=== PATIENT | male | born 1965 | race Hispanic/Latino ===

== ENCOUNTER 2017-03-31 07:19 | Emergency (ER) | payer BC ==
[2017-03-31] MEDS ORDERED: NACL 0.9% 1000 ML 1,000 ML IV ONE (07:39)
[2017-03-31 08:07] LABS: Basophils % (Auto) 0.3 % (0.0-1.8); Eosinophils % (Auto) 0.2 % (0.0-4.3); Hematocrit 49.6 % (35.5-45.6); Hemoglobin 17.2 gm/dl (11.8-15.2); Mean Corpuscular HGB Conc 35 % (32-34); Mean Corpuscular Hemoglobin 34 pg (28-32); Mean Corpuscular Volume 98 fl (84-94); Platelet Count 177 K/mm3 (140-440); Red Blood Count 5.06 M/mm3 (3.65-5.03); White Blood Count 9.3 K/mm3 (4.5-11.0)
[2017-03-31 08:13] LABS: INR 0.98 (0.87-1.13)
[2017-03-31 08:14] LABS: Partial Thromboplastin Time 28.6 Sec. (24.2-36.6)
[2017-03-31 08:24] LABS: Alanine Aminotransferase 37 units/L (7-56); Albumin 4.7 g/dL (3.9-5); Albumin/Globulin Ratio 1.4 %; Alkaline Phosphatase 105 units/L (35-129); Anion Gap 27 mmol/L; BUN/Creatinine Ratio 17.77; Blood Urea Nitrogen 16 mg/dL (9-20); Calcium 9.5 mg/dL (8.4-10.2); Carbon Dioxide 22 mmol/L (22-30); Chloride 94.1 mmol/L (98-107); Glucose 122 mg/dL (75-100); Lipase 56 units/L (13-60); Potassium 3.7 mmol/L (3.6-5.0); Sodium 139 mmol/L (137-145); Total Protein 8.1 g/dL (6.3-8.2)
--- NOTE | 2017-03-31 08:29 | XRay Report ---
ROUTINE CHEST, TWO VIEWS: HISTORY: chest pain. The trachea, heart, mediastinal contour, lung dowling and bony thorax are unremarkable. IMPRESSION: Unremarkable chest x-ray.
[2017-03-31] MEDS ORDERED: ATIVAN PO ONE (09:22)
--- NOTE | 2017-03-31 10:12 | Emergency Department Report ---
ED Chest Pain HPI - General Chief Complaint: Chest Pain Stated Complaint: CHEST PAIN Time Seen by Provider: 03/31/17 09:05 Source: patient Mode of arrival: Ambulatory Limitations: No Limitations - History of Present Illness Initial Comments: 51-year-old male presents to the emergency department complaining of chest pain. Patient reports the onset of anterior chest pain approximately 2 AM this morning. Patient describes sharp pain that does not radiate. Pain has been intermittent since onset. Patient reports some nausea and vomiting, but denies shortness of breath, dizziness, or diaphoresis. Patient also reports seeing bright red blood in his stool this morning. Patient states that he normally drinks about a pint of liquor a day. He reports to me that his last drink was more than 24 hours ago, but he told the triage nurse that his last drink was about 3:30 this morning. There are no other complaints. MD Complaint: chest pain -: Sudden, During the night Time: 02:00 Onset: during rest Pain Location: substernal, left chest, right chest Pain Radiation: none Severity: mild Severity scale (0 -10): 3 Consistency: intermittent Improves With: nothing Worsens With: nothing re: nausea, vomting. denies: diaphoresis, dyspnea Other Symptoms: other (hematochezia) Treatments Prior to Arrival: none Aspirin use within the Past 7 Days: (0) No - Related Data Home Medications Medication Instructions Recorded Confirmed Last Taken Lisinopril [Zestril TAB] 10 mg PO QDAY 03/31/17 03/31/17 Unknown amLODIPine [Norvasc] 10 mg PO DAILY 03/31/17 03/31/17 Unknown Allergies Allergy/AdvReac Type Severity Reaction Status Date / Time No Known Allergies Allergy Unverified 03/31/17 07:29 SAM score - Sam Score Age > 65: (0) No Aspirin use within the Past 7 Days: (0) No 3 or more CAD Risk Factors: (0) No 2 or more Angina events in past 24 hrs: (0) No Known CAD with more than 50% Stenosis: (0) No Elevated Cardiac Markers: (0) No ST Deviation Greater than 0.5mm: (0) No SAM Score: 0 ED Review of Systems ROS: Stated complaint: CHEST PAIN Other details as noted in HPI Comment: All other systems reviewed and negative Cardiovascular: chest pain Gastrointestinal: nausea, vomiting, hematochezia ED Past Medical Hx - Past Medical History Previous Medical History?: Yes Hx Hypertension: Yes - Surgical History Past Surgical History?: Yes Additional Surgical History: steel in right arm and rt shoulder - Family History Family history: no significant - Social History Smoking Status: Current Every Day Smoker Substance Use Type: Alcohol - Medications Home Medications: Home Medications Medication Instructions Recorded Confirmed Last Taken Type Lisinopril [Zestril TAB] 10 mg PO QDAY 03/31/17 03/31/17 Unknown History amLODIPine [Norvasc] 10 mg PO DAILY 03/31/17 03/31/17 Unknown History ED Physical Exam - General Limitations: No Limitations General appearance: alert, in no apparent distress, appears intoxicated - Head Head exam: Present: atraumatic, normocephalic - Eye Eye exam: Present: normal appearance, PERRL, EOMI - ENT ENT exam: Present: normal exam, normal orophraynx, mucous membranes moist - Neck Neck exam: Present: normal inspection, full ROM. Absent: tenderness - Respiratory Respiratory exam: Present: normal lung sounds bilaterally. Absent: respiratory distress - Cardiovascular Cardiovascular Exam: Present: regular rate, normal rhythm, normal heart sounds - GI/Abdominal GI/Abdominal exam: Present: soft, normal bowel sounds. Absent: distended, tenderness - Extremities Exam Extremities exam: Present: normal inspection, full ROM. Absent: tenderness - Back Exam Back exam: Present: normal inspection, full ROM. Absent: tenderness - Neurological Exam Neurological exam: Present: alert, oriented X3. Absent: motor sensory deficit - Skin Skin exam: Present: warm, dry, intact ED Course Vital Signs 03/31/17 03/31/17 03/31/17 07:30 08:44 08:45 Temperature 98.3 F Pulse Rate 94 H 101 H Respiratory 26 H 15 Rate Blood Pressure 163/104 Blood Pressure [Left] O2 Sat by Pulse 100 96 95 Oximetry 03/31/17 08:53 Temperature Pulse Rate Respiratory Rate Blood Pressure Blood Pressure 166/99 [Left] O2 Sat by Pulse Oximetry ED Medical Decision Making - Lab Data Result diagrams: 03/31/17 07:46 03/31/17 07:46 - EKG Data -: EKG Interpreted by Ks EKG shows normal: sinus rhythm, axis, intervals, QRS complexes Rate: normal - EKG Data When compared to previous EKG there are: previous EKG unavailable Interpretation: nonspecific ST-T wave oral - Radiology Data Radiology results: report reviewed Chest x-ray shows no acute cardiopulmonary abnormalities. - Medical Decision Making Lab and imaging results reviewed. Patient is clinically sober at this time. He is had a nonischemic ECG and 2 negative troponins. Patient will be discharged home at this time. - Differential Diagnosis atypical chest pain, alcohol intoxication, anemia, GERD Critical care attestation.: If time is entered above; I have spent that time in minutes in the direct care of this critically ill patient, excluding procedure time. ED Disposition Clinical Impression: Non-cardiac chest pain Alcohol intoxication Qualifiers: Complication of substance-induced condition: uncomplicated Qualified Code(s): F10.920 - Alcohol use, unspecified with intoxication, uncomplicated Disposition: DISCHARGED TO HOME OR SELFCARE Is pt being admited?: No Condition: Stable Instructions: Chest Pain (ED) Referrals: PRIMARY CARE, [Primary Care Provider] - 3-5 Days Time of Disposition: 12:55
[2017-03-31 12:21] LABS: Urine Drugs of Abuse Note Disclamer
[2017-03-31 13:05] VITALS: BP 150/79
== END 2017-03-31 13:03 | disposition home or self-care (01) ==
LOC: ED 07:19
DX: R07.9 Chest pain, unspecified (principal); R11.2 Nausea with vomiting, unspecified; I10 Essential (primary) hypertension; F17.200 Nicotine dependence, unspecified, uncomplicated
CPT/HCPCS: 36415; 71020; 80053; 80307; 83690; 84484; 85025; 85610; 85730; 86850; 86900; 86901; 93005; 93010; 96360; 96361; 99285; G0480; J7030; 80320

== ENCOUNTER 2017-04-17 14:24 | Emergency (ER) | payer BC ==
[2017-04-17 15:27] LABS: Basophils % (Auto) 0.5 % (0.0-1.8); Eosinophils % (Auto) 1.4 % (0.0-4.3); Hematocrit 43.4 % (35.5-45.6); Hemoglobin 14.8 gm/dl (11.8-15.2); Mean Corpuscular HGB Conc 34 % (32-34); Mean Corpuscular Hemoglobin 33 pg (28-32); Mean Corpuscular Volume 97 fl (84-94); Platelet Count 390 K/mm3 (140-440); Red Blood Count 4.45 M/mm3 (3.65-5.03); White Blood Count 6.4 K/mm3 (4.5-11.0)
[2017-04-17 15:41] LABS: BUN/Creatinine Ratio 15.55; Blood Urea Nitrogen 14 mg/dL (9-20); Calcium 10.3 mg/dL (8.4-10.2); Carbon Dioxide 17 mmol/L (22-30); Chloride 93.4 mmol/L (98-107); Glucose 179 mg/dL (75-100); Sodium 129 mmol/L (137-145)
[2017-04-17 15:46] LABS: Anion Gap 22 mmol/L; Potassium 3.8 mmol/L (3.6-5.0)
[2017-04-17 22:02] LABS: Urine Drugs of Abuse Note Disclamer
[2017-04-17 22:20] LABS: Bacteria,Urine 1+ /HPF (Negative); Bilirubin,Urine NEG (Negative); Blood,Urine NEG (Negative); Ketones,Urine TR mg/dL (Negative); Leukocyte Esterase,Urine TR (Negative); Mucus,Urine 2+ /HPF; Nitrite,Urine NEG (Negative)
[2017-04-18] MEDS ORDERED: ATIVAN IV ONE (03:57)
[2017-04-18] MEDS ORDERED: NACL 0.9% 1000 ML 1,000 ML IV ONE ×2 (03:57→06:44)
[2017-04-18] MEDS ORDERED: ZOFRAN IV ONE (03:57)
[2017-04-18] MEDS ORDERED: VITAMIN B-1 100 MG, FOLVITE 1 MG, INFUVITE 10 ML in NACL 0.9% 1000 ML 1,000 ML IV ONE (03:57)
[2017-04-18] MEDS ORDERED: DILAUDID IV ONE ×2 (03:57→05:22)
[2017-04-18 05:09] LABS: Alanine Aminotransferase 27 units/L (7-56); Albumin 4.5 g/dL (3.9-5); Albumin/Globulin Ratio 1.9 %; Alkaline Phosphatase 72 units/L (35-129); Lipase 99 units/L (13-60); Total Protein 6.9 g/dL (6.3-8.2)
[2017-04-18 05:16] LABS: Bilirubin,Direct < 0.2 mg/dL (0-0.2); Bilirubin,Indirect 0.3 mg/dL
--- NOTE | 2017-04-18 06:20 | Emergency Department Report ---
ED Alcohol HPI - General Chief Complaint: Psych Stated [facility] Time Seen by Provider: 04/18/17 03:45 Source: patient Mode of arrival: Ambulatory Limitations: No Limitations - History of Present Illness Initial Comments: 52-year-old male with a past medical history hypertension and alcohol abuse presents to [facility] complaints are call detox. Last drink 2 days ago. Patient presents with right arm shaking. Positive SI reported with a plan to jump off a bridge. Patient denies any suicidal attempt in the past. Has been depressed because things have been going wrong in his life lately. Patient had been nausea and vomiting the last 2 days with some mild epigastric pain. Pain is worse to palpation. Patient also complains of headache. - Related Data Home Medications Medication Instructions Recorded Confirmed Last Taken Lisinopril [Zestril TAB] 10 mg PO QDAY 03/31/17 04/18/17 Unknown amLODIPine [Norvasc] 10 mg PO DAILY 03/31/17 04/18/17 Unknown Allergies Allergy/AdvReac Type Severity Reaction Status Date / Time No Known Allergies Allergy Unverified 03/31/17 07:29 ED Review of Systems ROS: Stated complaint: [facility] Other details as noted in HPI Comment: All other systems reviewed and negative Other: Constitutional: No fevers chills Eyes: No eye pain visual changes ENT: No ear pain or throat pain Neck: Denies pain Respiratory: Denies cough wheezing shortness of breath Cardiovascular: Denies chest pain, palpitations, syncope GI: As per HPI : Denies dysuria Musculoskeletal: Denies back pain Skin: Denies rash, lesions, erythema Neurologic: Denies numbness, weakness Psychiatric: Positive suicidal ideation ED Past Medical Hx - Past Medical History Hx Hypertension: Yes Hx Psychiatric Treatment: Yes (alcoholism) - Surgical History Additional Surgical History: steel in right arm and rt shoulder - Social History Smoking Status: Current Every Day Smoker Substance Use Type: Alcohol - Medications Home Medications: Home Medications Medication Instructions Recorded Confirmed Last Taken Type Lisinopril [Zestril TAB] 10 mg PO QDAY 03/31/17 04/18/17 Unknown History amLODIPine [Norvasc] 10 mg PO DAILY 03/31/17 04/18/17 Unknown History ED Physical Exam - General Limitations: No Limitations - Other Other exam information: General: No limitations, patient is alert in no acute distress Head exam: Atraumatic, normocephalic Eyes exam: Normal appearance ENT: Moist mucous membrane, normal oropharynx Neck exam: Normal inspection, full range of motion, no meningismus nontender Respiratory exam: Clear to auscultation bilateral, no wheezes, rales, crackles Cardiovascular: Normal rate and rhythm, normal heart sounds Abdomen: Soft, nondistended, mild epigastric tenderness, with normal bowel sounds, no rebound, or guarding Extremity: Full range of motion normal inspection no deformity Back: Normal Inspection, full range of motion, no tenderness Neurologic: Alert, oriented x3, cranial nerves intact, no motor or sensory deficit. Tremor noted to right hand Psychiatric: normal affect, normal mood Skin: Warm, dry, intact ED Course Vital Signs 04/17/17 04/17/17 04/18/17 15:06 20:28 01:23 Temperature 99.2 F 98.6 F Pulse Rate 107 H 101 H 72 Respiratory 18 20 18 Rate Blood Pressure 150/111 Blood Pressure 155/99 142/82 [Right] O2 Sat by Pulse 100 97 95 Oximetry 04/18/17 04/18/17 04/18/17 01:59 02:00 02:30 Temperature Pulse Rate 74 70 Respiratory 18 18 18 Rate Blood Pressure Blood Pressure 138/78 145/75 [Right] O2 Sat by Pulse 96 97 96 Oximetry 04/18/17 04/18/17 04/18/17 03:45 04:15 04:41 Temperature Pulse Rate 68 65 60 Respiratory 18 18 18 Rate Blood Pressure 120/63 Blood Pressure 124/72 124/69 [Right] O2 Sat by Pulse 96 95 94 Oximetry 04/18/17 04/18/17 05:00 05:43 Temperature Pulse Rate 63 Respiratory 17 18 Rate Blood Pressure 118/65 Blood Pressure [Right] O2 Sat by Pulse 95 Oximetry - Reevaluation(s) Reevaluation #1: 04/18/17 06:41 vitals and sx improved in ed with treatment ED Medical Decision Making - Lab Data Result diagrams: 04/17/17 15:15 04/17/17 15:15 Lab Results 04/17/17 04/17/17 04/17/17 Range/Units 15:15 15:15 15:15 WBC 6.4 (4.5-11.0) K/mm3 RBC 4.45 (3.65-5.03) M/mm3 Hgb 14.8 (11.8-15.2) gm/dl Hct 43.4 (35.5-45.6) % MCV 97 H (84-94) fl MCH 33 H (28-32) pg MCHC 34 (32-34) % RDW 13.0 L (13.2-15.2) % Plt Count 390 (140-440) K/mm3 Lymph % (Auto) 16.1 (13.4-35.0) % [place] % (Auto) 4.4 (0.0-7.3) % Eos % (Auto) 1.4 (0.0-4.3) % Baso % (Auto) 0.5 (0.0-1.8) % Lymph # 1.0 L (1.2-5.4) K/mm3 [place] # 0.3 (0.0-0.8) K/mm3 Eos # 0.1 (0.0-0.4) K/mm3 Baso # 0.0 (0.0-0.1) K/mm3 Seg Neutrophils % 77.6 H (40.0-70.0) % Seg Neutrophils # 4.9 (1.8-7.7) K/mm3 Sodium 129 L (137-145) mmol/L Potassium 3.8 (3.6-5.0) mmol/L Chloride 93.4 L (98-107) mmol/L Carbon Dioxide 17 L (22-30) mmol/L Anion Gap 22 mmol/L BUN 14 (9-20) mg/dL Creatinine 0.9 (0.8-1.5) mg/dL Estimated GFR > 60 ml/min BUN/Creatinine Ratio 15.55 % Glucose 179 H (75-100) mg/dL Calcium 10.3 H (8.4-10.2) mg/dL Magnesium (1.7-2.3) mg/dL Total Bilirubin (0.1-1.2) mg/dL Direct Bilirubin (0-0.2) mg/dL Indirect Bilirubin mg/dL AST (5-40) units/L ALT (7-56) units/L Alkaline Phosphatase (35-129) units/L Total Protein (6.3-8.2) g/dL Albumin (3.9-5) g/dL Albumin/Globulin Ratio % Lipase (13-60) units/L Urine Color (Yellow) Urine Turbidity (Clear) Urine pH (5.0-7.0) Ur Specific [place] (1.003-1.030) Urine Protein (Negative) mg/dL Urine Glucose (UA) (Negative) mg/dL Urine Ketones (Negative) mg/dL Urine Blood (Negative) Urine Nitrite (Negative) Urine Bilirubin (Negative) Urine Urobilinogen (<2.0) mg/dL Ur Leukocyte Esterase (Negative) Urine WBC (Auto) (0.0-6.0) /HPF Urine RBC (Auto) (0.0-6.0) /HPF U Epithel Cells (Auto) (0-13.0) /HPF Urine Bacteria (Auto) (Negative) /HPF Calcium Oxalate Crystal Hyaline Casts /LPF Urine Mucus /HPF Urine Opiates Screen Urine Methadone Screen Ur Barbiturates Screen Ur Phencyclidine Scrn Ur Amphetamines Screen U Benzodiazepines Scrn Urine Cocaine Screen U Marijuana (THC) Screen Drugs of Abuse Note Plasma/Serum Alcohol < 0.01 (0-0.07) gm% 04/17/17 04/17/17 04/18/17 Range/Units 21:48 21:48 04:19 WBC (4.5-11.0) K/mm3 RBC (3.65-5.03) M/mm3 Hgb (11.8-15.2) gm/dl Hct (35.5-45.6) % MCV (84-94) fl MCH (28-32) pg MCHC (32-34) % RDW (13.2-15.2) % Plt Count (140-440) K/mm3 Lymph % (Auto) (13.4-35.0) % [place] % (Auto) (0.0-7.3) % Eos % (Auto) (0.0-4.3) % Baso % (Auto) (0.0-1.8) % Lymph # (1.2-5.4) K/mm3 [place] # (0.0-0.8) K/mm3 Eos # (0.0-0.4) K/mm3 Baso # (0.0-0.1) K/mm3 Seg Neutrophils % (40.0-70.0) % Seg Neutrophils # (1.8-7.7) K/mm3 Sodium (137-145) mmol/L Potassium (3.6-5.0) mmol/L Chloride (98-107) mmol/L Carbon Dioxide (22-30) mmol/L Anion Gap mmol/L BUN (9-20) mg/dL Creatinine (0.8-1.5) mg/dL Estimated GFR ml/min BUN/Creatinine Ratio % Glucose (75-100) mg/dL Calcium (8.4-10.2) mg/dL Magnesium 1.70 (1.7-2.3) mg/dL Total Bilirubin 0.50 (0.1-1.2) mg/dL Direct Bilirubin < 0.2 (0-0.2) mg/dL Indirect Bilirubin 0.3 mg/dL AST 29 (5-40) units/L ALT 27 (7-56) units/L Alkaline Phosphatase 72 (35-129) units/L Total Protein 6.9 (6.3-8.2) g/dL Albumin 4.5 (3.9-5) g/dL Albumin/Globulin Ratio 1.9 % Lipase 99 H (13-60) units/L Urine Color [place] (Yellow) Urine Turbidity Clear (Clear) Urine pH 5.0 (5.0-7.0) Ur Specific [place] 1.026 (1.003-1.030) Urine Protein 30 mg/dl (Negative) mg/dL Urine Glucose (UA) Neg (Negative) mg/dL Urine Ketones Tr (Negative) mg/dL Urine Blood Neg (Negative) Urine Nitrite Neg (Negative) Urine Bilirubin Neg (Negative) Urine Urobilinogen 2.0 (<2.0) mg/dL Ur Leukocyte Esterase Tr (Negative) Urine WBC (Auto) 4.0 (0.0-6.0) /HPF Urine RBC (Auto) 3.0 (0.0-6.0) /HPF U Epithel Cells (Auto) < 1.0 (0-13.0) /HPF Urine Bacteria (Auto) 1+ (Negative) /HPF Calcium Oxalate Crystal 1+ Hyaline Casts 1 /LPF Urine Mucus 2+ /HPF Urine Opiates Screen Presumptive negative Urine Methadone Screen Presumptive negative Ur Barbiturates Screen Presumptive positive Ur Phencyclidine Scrn Presumptive negative Ur Amphetamines Screen Presumptive negative U Benzodiazepines Scrn Presumptive positive Urine Cocaine Screen Presumptive negative U Marijuana (THC) Screen Presumptive negative Drugs of Abuse Note Disclamer Plasma/Serum Alcohol (0-0.07) gm% - Medical Decision Making Vital signs since improved ED treatment. Mental health has been consult to evaluate patient for inpatient treatment secondary to suicidal ideation as well as alcohol detox - Differential Diagnosis alcohol withdrawal, suicidal ideation Critical Care Time: No Critical care attestation.: If time is entered above; I have spent that time in minutes in the direct care of this critically ill patient, excluding procedure time. ED Disposition Clinical Impression: Alcohol abuse, Alcohol withdrawal, Suicidal ideation, Medical clearance for psychiatric admission Disposition: [id number]/TX-65 PSY HOSP/PSY UNIT Is pt being admited?: No Does the pt Need Aspirin: No Condition: Stable Time of Disposition: 06:43
[2017-04-18] MEDS ORDERED: ATIVAN IV PRN ×2 (06:43)
[2017-04-18] MEDS: ATIVAN IV PRN ×2 (07:45→18:15)
[2017-04-18] MEDS ORDERED: NACL 0.9% 1000 ML 1,000 ML ONE (10:18)
--- NOTE | 2017-04-18 12:12 | Consultation ---
History of Present Illness - Reason for Consult Reason for consult: etoh abuse Medications and Allergies Allergies Allergy/AdvReac Type Severity Reaction Status Date / Time No Known Allergies Allergy Unverified 03/31/17 07:29 Home Medications Medication Instructions Recorded Confirmed Last Taken Type Lisinopril [Zestril TAB] 10 mg PO QDAY 03/31/17 04/18/17 Unknown History amLODIPine [Norvasc] 10 mg PO DAILY 03/31/17 04/18/17 Unknown History Active Meds: Active Medications Lorazepam (Ativan) 4 mg IV Q1HR PRN PRN Reason: CIWA-Ar 16-25 Lorazepam (Ativan) 2 mg IV Q1HR PRN PRN Reason: CIWA-Ar 8-15 Last Admin: 04/18/17 07:45 Dose: 2 mg Lorazepam (Ativan) 4 mg IV Q15MIN PRN PRN Reason: CIWA-Ar >25 Mental Status Exam - Vital signs Last Vital Signs Temp 98 F 04/18/17 07:20 Pulse 52 L 04/18/17 10:30 Resp 16 04/18/17 10:30 BP 112/61 04/18/17 10:30 Pulse Ox 100 04/18/17 10:30 Results Result Diagrams: 04/17/17 15:15 04/17/17 15:15 Abnormal lab results 04/17/17 04/17/17 04/18/17 Range/Units 15:15 15:15 04:19 MCV 97 H (84-94) fl MCH 33 H (28-32) pg RDW 13.0 L (13.2-15.2) % Lymph # 1.0 L (1.2-5.4) K/mm3 Seg Neutrophils % 77.6 H (40.0-70.0) % Sodium 129 L (137-145) mmol/L Chloride 93.4 L (98-107) mmol/L Carbon Dioxide 17 L (22-30) mmol/L Glucose 179 H (75-100) mg/dL Calcium 10.3 H (8.4-10.2) mg/dL Lipase 99 H (13-60) units/L All other labs normal. Assessment and Plan Assessment and plan: CHIEF COMPLAINT IN PATIENTS WORDS: HISTORY OF PRESENT ILLNESS REQUIRING ADMISSION TO INPATIENT LEVEL OF CARE: (Describe the onset of Illness, Intensity of Symptoms, and Circumstances Leading to Admission) This is a 52-year-old domiciled male who reports no formal past psychiatric history now presenting due to acute intoxication on EtOH with associated withdrawal syndrome and headache. On examination, patient was sedated and reported headache. Patient was minimally responsive to interviewer's questions. PSYCHIATRIC REVIEW OF SYSTEMS: Substance: UDS positive for barbiturates and benzos, with an undetectable BAL level Depression: unable to assess. Abby: unable to assess. Psychosis: unable to assess. Anxiety/ OCD/ PTSD: unable to assess. Suicidality: unable to assess. Other Self-Injurious Behavior: unable to assess. Violent/ Aggressive Behavior: unable to assess. CURRENT MEDICATIONS: ( Psychiatric and Non-psychiatric ) Patient unable to report ALLERGIES: NKDA PAST PSYCHIATRIC HISTORY: ( Prior Treatment, Precipitating Factors, Diagnosis, and Course of Treatment ) unable to assess. PAST PSYCHIATRIC MEDICATION TRIALS: unable to assess. MEDICAL HISTORY: (Chronic and Acute Illnesses, Current Medical Treatment, Recent Hospitalizations) unable to assess. Detoxification / Withdrawal: Patient had some signs and symptoms of withdrawal and was started on lorazepam detox taper MENTAL STATUS EXAM: General Appearance: Dressed in hospital gown, no acute distress Sensorium/Consciousness: sedated Eye Contact: none Attitude / Behavior: guarded, uncooperative Psychomotor & Musculoskeletal Activity: PMR Mood: reports headache Affect: flat Speech / Language: difficult to discern, slow and low volume Thought Processes: Mostly organized Thought Content: Unable to assess Perception: Denies perceptual disturbances Orientation: person, place, situation Judgment What would you do if you smelled smoke in a crowded movie theater?: poor/impulsive Insight: poor Intelligence Vocabulary, general fund of knowledge, educational level: Average Capacity of ADLs: Independent STRENGTHS: PSYCHOSOCIAL AND ENVIRONMENTAL STRESSORS: ADMITTING DIAGNOSES Psychiatric: Alcohol abuse Benzodiazepine abuse Evidence for the following: Medical: n/a INITIAL PLAN OF CARE AND TREATMENT GOALS: Reassess when patient is more alert Agree with current recommendation of using Ativan and this evil protocol to ensure patient doesn't incur worsening signs and symptoms of withdrawal
[2017-04-18] MEDS ORDERED: ULTRAM PO ONE (17:46)
--- NOTE | 2017-04-18 22:03 | Cat Scan Report ---
FINAL REPORT PROCEDURE: CT HEAD/BRAIN WO CON TECHNIQUE: Computerized tomography of the head was performed without contrast material. HISTORY: headache COMPARISON: No prior studies are available for comparison. FINDINGS: Skull and scalp: Normal. Paranasal sinuses: Normal. Ventricles and subarachnoid spaces: Normal. Cerebrum: No evidence of hemorrhage, acute infarction or mass . Cerebellum and brainstem: No evidence of hemorrhage, acute infarction or mass. Vasculature: Normal. Comments: None. IMPRESSION: Normal Examination
[2017-04-18] MEDS ORDERED: TORADOL ONE (22:33)
[2017-04-18] MEDS ORDERED: TORADOL IV ONE (22:39)
[2017-04-19 00:13] VITALS: BP 108/49
== END 2017-04-19 00:39 ==
LOC: ED 14:24
DX: R45.851 Suicidal ideations (principal); F10.239 Alcohol dependence with withdrawal, unspecified; F17.200 Nicotine dependence, unspecified, uncomplicated
CPT/HCPCS: 36415; 70450; 80048; 80074; 80307; 81001; 83690; 83735; 85025; 96361; 96365; 96366; 96375; 96376; 99285; G0480; J1170; J1885; J2060; J2405; J3411; J7030; 80320

== ENCOUNTER 2019-05-24 12:56 | Emergency (ER) | payer BC, OTHER ==
--- NOTE | 2019-05-24 13:08 | Event Note ---
ED Screening Note Date of service: 05/24/19 Time: 13:06 ED Screening Note: This is a 54 y.o. M. that presents to the ER with abdominal pain from [facility]. Current smoker and ETOH Denies V/D This initial assessment/diagnostic orders/clinical plan/treatment(s) is/are subject to change based on patients health status, clinical progression and re- assessment by fellow clinical providers in the ED. Further treatment and workup at subsequent clinical providers discretion. Patient/guardian urged not to elope from the ED as their condition may be serious if not clinically assessed and managed. Initial orders include: Labs
[2019-05-24 13:21] LABS: Basophils # (Auto) 0.1 K/mm3 (0.0-0.1); Basophils % (Auto) 1.1 % (0.0-1.8); Eosinophils % (Auto) 0.7 % (0.0-4.3); Hematocrit 48.7 % (35.5-45.6); Hemoglobin 17.2 gm/dl (11.8-15.2); Lymphocytes # (Auto) 2.2 K/mm3 (1.2-5.4); Lymphocytes % (Auto) 37.7 % (13.4-35.0); Mean Corpuscular HGB Conc 35 % (32-34); Mean Corpuscular Volume 103 fl (84-94); Monocytes # (Auto) 0.2 K/mm3 (0.0-0.8); Monocytes % (Auto) 4.2 % (0.0-7.3); Platelet Count 226 K/mm3 (140-440); Red Blood Count 4.73 M/mm3 (3.65-5.03); Red Cell Distribution Width 13.4 % (13.2-15.2)
[2019-05-24 13:37] LABS: Alanine Aminotransferase 23 units/L (7-56); Albumin 4.9 g/dL (3.9-5); BUN/Creatinine Ratio 13; Blood Urea Nitrogen 12 mg/dL (9-20); Calcium 9.8 mg/dL (8.4-10.2); Hemolysis Index 11
[2019-05-24] MEDS ORDERED: ALUM-MAG HYDROX-SIMETH 200-200-20MG/5ML PO ONE (14:36)
[2019-05-24] MEDS ORDERED: ZOFRAN ODT PO ONE (14:36)
[2019-05-24 14:48] LABS: Bilirubin,Urine NEG (Negative); Blood,Urine NEG (Negative); Color,Urine Amber (Yellow); Mucus,Urine 3+ /HPF
[2019-05-24 15:04] LABS: Amphetamine Screen,Urine PRESUMPTIVE NEGATIVE; Benzodiazepines Screen,Urine PRESUMPTIVE NEGATIVE; Cannabinoid Screen,Urine PRESUMPTIVE NEGATIVE; Cocaine Screen,Urine PRESUMPTIVE NEGATIVE; Methadone Screen,Urine PRESUMPTIVE NEGATIVE; Opiate Screen,Urine PRESUMPTIVE NEGATIVE
--- NOTE | 2019-05-24 15:15 | XRay Report ---
CHEST 1 VIEW INDICATION: CP. COMPARISON: None. FINDINGS: Support devices: None. Heart: Within normal limits. Lungs/Pleura: No acute air space or interstitial disease. Additional findings: None. IMPRESSION: No acute abnormality. Signer Name: Barney Powell MD Signed: 05/24/2019 3:11 PM Workstation Name: [id number]
[2019-05-24] MEDS ORDERED: NACL 0.9% 1000 ML 1,000 ML IV ONE (15:28)
[2019-05-24] MEDS ORDERED: DUONEB *Not for PRN Use IH ONE (15:29)
--- NOTE | 2019-05-24 16:46 | Cat Scan Report ---
CT abdomen pelvis w con INDICATION: ABD PAIN, N/V.. TECHNIQUE: All CT scans at this location are performed using the following dose modulation technique: Automated exposure control. CONTRAST: Omnipaque 300, 100 cc IV injection. COMPARISON: None available. CT abdomen: The parenchymal organs are unremarkable in appearance other than mild fatty infiltration of the liver. Negative for abdominal section or inflammation. The bowel is not dilated or thickened. CT PELVIS: Negative for distal ureteral stone, pelvic fluid collection or inflammation. A normal appe ndix is identified. IMPRESSION: 1. Mild fatty infiltration the liver. 2. Negative for obstruction or localized inflammation. Signer Name: Barney Powell MD Signed: 05/24/2019 4:42 PM Workstation Name: [id number]
--- NOTE | 2019-05-24 17:16 | Emergency Department Report ---
ED General Adult HPI - General Chief complaint: Chest Pain Stated complaint: CHEST PAIN/MEDICAL CLEARANCE Time Seen by Provider: 05/24/19 13:06 Source: patient Mode of arrival: Ambulatory Limitations: No Limitations - History of Present Illness Initial comments: This is a 54 y.o. M. that presents to the ER with abdominal pain from [facility], patient is to start alcohol detox today, was sent to ED for medical clearance secondary to him complaining of abdominal pain. Rates pain as 5 out of 10, burning in sensation, did consume alcohol today. Pain is worse with alcohol consumption. No fever, chills or night sweats. No vomiting. Does have nausea. no Alleviating factors. Severity scale (0 -10): 10 - Related Data Home Medications Medication Instructions Recorded Confirmed Last Taken Lisinopril [Zestril TAB] 10 mg PO QDAY 03/31/17 04/18/17 Unknown amLODIPine [Norvasc] 10 mg PO DAILY 03/31/17 04/18/17 Unknown Allergies Allergy/AdvReac Type Severity Reaction Status Date / Time No Known Allergies Allergy Unverified 03/31/17 07:29 ED Review of Systems ROS: Stated complaint: CHEST PAIN/MEDICAL CLEARANCE Other details as noted in HPI Comment: All other systems reviewed and negative ENT: denies: ear pain Respiratory: denies: cough Cardiovascular: denies: chest pain Endocrine: denies: flushing Gastrointestinal: abdominal pain, nausea. denies: vomiting ED Past Medical Hx - Past Medical History Hx Hypertension: Yes Hx Psychiatric Treatment: Yes (alcoholism) - Surgical History Additional Surgical History: steel in right arm and rt shoulder - Social History Smoking Status: Current Every Day Smoker Substance Use Type: Alcohol - Medications Home Medications: Home Medications Medication Instructions Recorded Confirmed Last Taken Type Lisinopril [Zestril TAB] 10 mg PO QDAY 03/31/17 04/18/17 Unknown History amLODIPine [Norvasc] 10 mg PO DAILY 03/31/17 04/18/17 Unknown History ED Physical Exam - General Limitations: No Limitations General appearance: alert, in no apparent distress - Head Head exam: Present: atraumatic, normocephalic - Eye Eye exam: Present: normal appearance, PERRL, EOMI Pupils: Present: normal accommodation - ENT ENT exam: Present: normal exam, normal orophraynx - Neck Neck exam: Present: normal inspection - Respiratory Respiratory exam: Present: normal lung sounds bilaterally - Cardiovascular Cardiovascular Exam: Present: regular rate, normal rhythm - GI/Abdominal GI/Abdominal exam: Present: soft, normal bowel sounds - Extremities Exam Extremities exam: Present: normal inspection - Back Exam Back exam: Present: normal inspection - Neurological Exam Neurological exam: Present: alert, oriented X3, CN II-XII intact ED Course Vital Signs 05/24/19 05/24/19 05/24/19 13:06 14:18 14:30 Temperature 98.4 F Pulse Rate 94 H 89 Pulse Rate [ Posterior Throughout] Respiratory 18 22 Rate Respiratory Rate [Posterior Throughout] Blood Pressure 145/103 166/97 Blood Pressure [Left] O2 Sat by Pulse 94 92 92 Oximetry 05/24/19 05/24/19 05/24/19 14:45 14:59 15:01 Temperature 98.2 F Pulse Rate 91 H 92 H Pulse Rate [ Posterior Throughout] Respiratory 14 22 22 Rate Respiratory Rate [Posterior Throughout] Blood Pressure 166/97 Blood Pressure 168/101 [Left] O2 Sat by Pulse 97 92 88 Oximetry 05/24/19 05/24/19 16:50 17:09 Temperature Pulse Rate Pulse Rate [ 88 90 Posterior Throughout] Respiratory Rate Respiratory 19 19 Rate [Posterior Throughout] Blood Pressure Blood Pressure [Left] O2 Sat by Pulse Oximetry ED Medical Decision Making - Lab Data Result diagrams: 05/24/19 13:10 05/24/19 13:10 Critical care attestation.: If time is entered above; I have spent that time in minutes in the direct care of this critically ill patient, excluding procedure time. ED Disposition Clinical Impression: Alcohol abuse Gastritis Qualifiers: Gastritis type: alcoholic Chronicity: acute Gastritis bleeding: without bleeding Qualified Code(s): K29.20 - Alcoholic gastritis without bleeding Disposition: -01 TO HOME OR SELFCARE Is pt being admited?: No Does the pt Need Aspirin: No Condition: Stable Instructions: Abuse of Alcohol (ED), Medical Clearance for Substance Abuse Treatment (ED) Referrals: KRISTA CHEN MD [Primary Care Provider] - 3-5 Days
[2019-05-24 17:22] VITALS: BP 139/79
[2019-05-24] MEDS ORDERED: ATIVAN PO ONE (17:54)
[2019-05-24] MEDS ORDERED: ATIVAN IV ONE (18:21)
[2019-05-24] MEDS ORDERED: ZOFRAN IV ONE (18:52)
== END 2019-05-24 19:20 | disposition home or self-care (01) ==
LOC: ED 12:56
DX: K29.20 Alcoholic gastritis without bleeding (principal); F10.120 Alcohol abuse with intoxication, uncomplicated; I10 Essential (primary) hypertension; F17.200 Nicotine dependence, unspecified, uncomplicated; Z79.899 Other long term (current) drug therapy
CPT/HCPCS: 36415; 71045; 74177; 80053; 80307; 81001; 82962; 83690; 84484; 85025; 93005; 93010; 94640; 96361; 96374; 96375; 99285; J2060; J2405; J7030; Q9967; 80320; 94644; G0480; Q0162

== ENCOUNTER 2021-01-17 09:07 | Emergency (ER) | payer SELFPAY ==
[2021-01-17] MEDS ORDERED: ONDANSETRON 4 MG/2 ML INJ IV ONE (09:12)
[2021-01-17] MEDS ORDERED: LORazepam 2 MG/ML VIAL IV ONE (09:12)
[2021-01-17] MEDS ORDERED: PANTOPRAZOLE 40 MG INJ IV ONE (09:19)
--- NOTE | 2021-01-17 09:22 | Emergency Department Report ---
ED Abdominal Pain HPI - General Stated Complaint: ABD PAINS Time Seen by Provider: 01/17/21 09:12 - History of Present Illness Initial Comments: This is a 55-year man who states that he has had trouble tolerating p.o. intake since last Monday. He describes epigastric discomfort. He denies any signs of hematemesis, hematochezia or melena. States he may have had some chills but denies fever. He is nauseated and has had dry heaving this a.m. the patient admits to me he is a regular consumer of alcohol but has not been able to drink since last Monday. He denies a prior history of pancreatitis. 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 He is noted to be generally a bit tremulous on exam. He denies prior experience with alcohol withdrawal. However his presentation is not inconsistent. MD Complaint: abdominal pain -: Gradual, days(s) Location: epigastric Radiation: none Migration to: no migration Quality: aching Consistency: intermittent Improves With: nothing Worsens With: eating Context: other (Alcohol consumption) Associated Symptoms: nausea, vomiting. denies: diarrhea, fever, constipation, dysuria, hematemesis, hematochezia - Related Data Home Medications Medication Instructions Recorded Confirmed Last Taken amLODIPine [Norvasc] 10 mg PO DAILY 03/31/17 04/18/17 Unknown lisinopriL [Zestril TAB] 10 mg PO QDAY 03/31/17 04/18/17 Unknown Previous Rx's Medication Instructions Recorded Last Taken Type Lansoprazole [Prevacid] 15 mg PO BID #30 cap 01/17/21 Unknown Rx Ondansetron [Zofran Odt] 4 mg PO Q8HR #7 tab.rapdis 01/17/21 Unknown Rx traMADoL [Ultram] 50 mg PO Q6HR PRN #7 tablet 01/17/21 Unknown Rx Allergies Allergy/AdvReac Type Severity Reaction Status Date / Time No Known Allergies Allergy Unverified 01/17/21 09:29 ED Review of Systems ROS: Stated complaint: ABD PAINS Other details as noted in HPI Constitutional: denies: chills, fever Eyes: denies: eye pain, vision change ENT: denies: ear pain, throat pain Respiratory: denies: cough, shortness of breath Cardiovascular: denies: chest pain, palpitations Endocrine: no symptoms reported Gastrointestinal: abdominal pain, nausea, vomiting. denies: diarrhea, hematemesis, melena, hematochezia Genitourinary: denies: urgency, dysuria Musculoskeletal: denies: back pain, arthralgia Skin: denies: rash, lesions Neurological: other (Nothing acute). denies: headache, weakness, paresthesias Psychiatric: denies: anxiety, depression Hematological/Lymphatic: denies: easy bleeding, easy bruising ED Past Medical Hx - Past Medical History Previous Medical History?: Yes Additional medical history: Right "radial nerve palsy". - Social History Substance Use Type: Alcohol - Medications Home Medications: Home Medications Medication Instructions Recorded Confirmed Last Taken Type amLODIPine [Norvasc] 10 mg PO DAILY 03/31/17 04/18/17 Unknown History lisinopriL [Zestril TAB] 10 mg PO QDAY 03/31/17 04/18/17 Unknown History Lansoprazole [Prevacid] 15 mg PO BID #30 cap 01/17/21 Unknown Rx Ondansetron [Zofran Odt] 4 mg PO Q8HR #7 tab.rapdis 01/17/21 Unknown Rx traMADoL [Ultram] 50 mg PO Q6HR PRN #7 tablet 01/17/21 Unknown Rx ED Physical Exam - General Limitations: Physical Limitation General appearance: in distress - Head Head exam: Present: atraumatic, normocephalic - Eye Eye exam: Present: normal appearance - ENT ENT exam: Present: mucous membranes dry - Neck Neck exam: Present: normal inspection - Respiratory Respiratory exam: Present: normal lung sounds bilaterally. Absent: respiratory distress - Cardiovascular Cardiovascular Exam: Present: regular rate, normal rhythm. Absent: systolic murmur, diastolic murmur, rubs, gallop - GI/Abdominal GI/Abdominal exam: Present: soft, tenderness (Mild discomfort deep palpation in the epigastric region), normal bowel sounds. Absent: distended, guarding, rebound, rigid - Rectal Rectal exam: Present: deferred - Extremities Exam Extremities exam: Present: normal inspection - Back Exam Back exam: Present: normal inspection - Neurological Exam Neurological exam: Present: alert, oriented X3, CN II-XII intact. Absent: motor sensory deficit (No acute focal deficit) - Psychiatric Psychiatric exam: Present: normal affect, normal mood - Skin Skin exam: Present: warm, dry, intact, normal color. Absent: rash ED Course Vital Signs 01/17/21 01/17/21 09:09 13:36 Temperature 98.5 F Pulse Rate 97 H Respiratory 20 Rate Blood Pressure 164/96 Blood Pressure 158/96 [Right] O2 Sat by Pulse 97 Oximetry - Reevaluation(s) Reevaluation #1: I have now had the opportunity to review this patient's medical records. Despite his repeated of alcohol withdrawal, he has had previous visits for detox. After Ativan the patient is much less shaky. He states he has some persistent abdominal pain. He has a prior history of gastritis as well. He has been given Protonix. We will proceed with a CT of his abdomen. In addition his blood pressure is significantly elevated. We are to manage that with a small dose of labetalol at this time. 01/17/21 12:33 Reevaluation #2: Patient remained stable. Detox discussed. He is not interested at this point. He has no indications for involuntary confinement. He is medically clear. He will be referred to primary care and placed on Protonix given something for nausea and pain. 01/17/21 14:12 01/17/21 14:13 Tremulousness resolved. Patient is well oriented. ED Medical Decision Making - Lab Data Result diagrams: 01/17/21 09:31 01/17/21 09:31 Laboratory Results - last 24 hr 01/17/21 01/17/21 01/17/21 09:31 09:31 09:31 WBC 8.9 RBC 4.70 Hgb 16.6 H Hct 47.5 H MCV 101 H MCH 35 H MCHC 35 H RDW 15.1 Plt Count 219 Lymph % (Auto) 14.1 Lamar % (Auto) 6.2 Eos % (Auto) 0.1 Baso % (Auto) 0.5 Lymph # (Auto) 1.3 Lamar # (Auto) 0.5 Eos # (Auto) 0.0 Baso # (Auto) 0.0 Seg Neutrophils % 79.1 H Seg Neutrophils # 7.0 PT 12.4 INR 0.94 APTT 26.9 Sodium 136 L Potassium 3.4 L Chloride 93.7 L Carbon Dioxide 25 Anion Gap 21 BUN 12 Creatinine 0.7 L Estimated GFR > 60 BUN/Creatinine Ratio 17 Glucose 108 H Calcium 9.3 Magnesium Total Bilirubin 1.30 H Direct Bilirubin 0.4 H Indirect Bilirubin 0.9 AST 22 ALT 16 Alkaline Phosphatase 86 Ammonia Total Creatine Kinase CK-MB (CK-2) CK-MB (CK-2) Rel Index Total Protein 7.4 Albumin 4.5 Albumin/Globulin Ratio 1.6 Lipase 28 01/17/21 01/17/21 01/17/21 09:31 09:31 09:31 WBC RBC Hgb Hct MCV MCH MCHC RDW Plt Count Lymph % (Auto) Lamar % (Auto) Eos % (Auto) Baso % (Auto) Lymph # (Auto) Lamar # (Auto) Eos # (Auto) Baso # (Auto) Seg Neutrophils % Seg Neutrophils # PT INR APTT Sodium Potassium Chloride Carbon Dioxide Anion Gap BUN Creatinine Estimated GFR BUN/Creatinine Ratio Glucose Calcium Magnesium 1.70 Total Bilirubin Direct Bilirubin Indirect Bilirubin AST ALT Alkaline Phosphatase Ammonia 26.0 Total Creatine Kinase 80 CK-MB (CK-2) 1.2 CK-MB (CK-2) Rel Index 1.5 Total Protein Albumin Albumin/Globulin Ratio Lipase - Radiology Data Radiology results: report reviewed COMPARISON: Exam is compared to 05/24/2019 FINDINGS: LOWER CHEST: No significant abnormality. LIVER: Diffuse pulmonary infiltration of the liver GALLBLADDER: No significant abnormality. BILE DUCTS: No significant abnormality. PANCREAS: No significant abnormality. SPLEEN: No significant abnormality. ADRENALS: No significant abnormality. RIGHT KIDNEY and URETER: No significant abnormality. LEFT KIDNEY and URETER: No significant abnormality. STOMACH and SMALL BOWEL: No significant abnormality. COLON: No significant abnormality. APPENDIX: No significant abnormality. PERITONEUM: No free fluid. No free air. No fluid collection. LYMPH NODES: No significant adenopathy. AORTA and ARTERIES: No significant abnormality. IVC and VEINS: No significant abnormality. URINARY BLADDER: No significant abnormality. REPRODUCTIVE ORGANS: No significant abnormality. ADDITIONAL FINDINGS: Small hiatal hernia SKELETAL SYSTEM: Degenerative changes thoracolumbar spine IMPRESSION: 1. No interval changes compared to previous exam 2. Hepatic steatosis Critical care attestation.: If time is entered above; I have spent that time in minutes in the direct care of this critically ill patient, excluding procedure time. ED Disposition Clinical Impression: Gastritis Qualifiers: Gastritis type: alcoholic Chronicity: acute Gastritis bleeding: without bleeding Qualified Code(s): K29.20 - Alcoholic gastritis without bleeding Alcohol withdrawal Qualifiers: Complication of substance-induced condition: uncomplicated Qualified Code(s): F10.230 - Alcohol dependence with withdrawal, uncomplicated Disposition: DC-01 TO HOME OR SELFCARE Is pt being admited?: No Does the pt Need Aspirin: No Condition: Stable Instructions: Gastritis, Adult, [id number], Alcohol Withdrawal Syndrome, [id number] Additional Instructions: Follow-up with primary care clinic. Rx as directed. Return any acute change or worsening particularly if you see any signs of coffee grounds or dark emesis or black stools. Prescriptions: Lansoprazole [Prevacid] 15 mg PO BID #30 cap traMADoL [Ultram] 50 mg PO Q6HR PRN #7 tablet PRN Reason: Pain Ondansetron [Zofran Odt] 4 mg PO Q8HR #7 tab.rapdis Referrals: [facility] [Provider Group] - 2-3 Days Time of Disposition: 14:14
[2021-01-17] MEDS ORDERED: THIAMINE 100 MG, FOLIC ACID 1 MG in SODIUM CHLORIDE 0.9% 1000 ML 1,000 ML IV ONE (10:00)
[2021-01-17] MEDS ORDERED: MULTIVITAMINS ,THERAPEUTIC TAB PO NR (10:00)
[2021-01-17 10:06] LABS: Basophils % (Auto) 0.5 % (0.0-1.8); Eosinophils % (Auto) 0.1 % (0.0-4.3); Hematocrit 47.5 % (35.5-45.6); Hemoglobin 16.6 gm/dl (11.8-15.2); Lymphocytes # (Auto) 1.3 K/mm3 (1.2-5.4); Lymphocytes % (Auto) 14.1 % (13.4-35.0); Mean Corpuscular HGB Conc 35 % (32-34); Mean Corpuscular Volume 101 fl (84-94); Monocytes # (Auto) 0.5 K/mm3 (0.0-0.8); Monocytes % (Auto) 6.2 % (0.0-7.3); Platelet Count 219 K/mm3 (140-440); Red Cell Distribution Width 15.1 % (13.2-15.2)
[2021-01-17 10:16] LABS: INR 0.94 (0.87-1.13)
[2021-01-17 10:17] LABS: Partial Thromboplastin Time 26.9 Sec. (24.2-36.6)
[2021-01-17 10:21] LABS: Creatine Kinase MB 1.2 ng/mL (0.0-4.0)
[2021-01-17 10:22] LABS: Alanine Aminotransferase 16 units/L (7-56); Albumin 4.5 g/dL (3.9-5); BUN/Creatinine Ratio 17; Bilirubin,Direct 0.4 mg/dL (0-0.2); Blood Urea Nitrogen 12 mg/dL (9-20); Calcium 9.3 mg/dL (8.4-10.2); Hemolysis Index 13
[2021-01-17] MEDS ORDERED: MORPHINE 2 MG/1 ML INJ IV ONE (12:44)
--- NOTE | 2021-01-17 13:15 | Cat Scan Report ---
CT ABDOMEN AND PELVIS WITH CONTRAST INDICATION / CLINICAL INFORMATION: MAIN. TECHNIQUE: Axial CT images were obtained through the abdomen and pelvis after 100 cc Omnipaque 300 milligrams pe rcent IV contrast. All CT scans at this location are performed using CT dose reduction for ALARA by means of automated exposure control. COMPARISON: Exam is compared to 05/24/2019 FINDINGS: LOWER CHEST: No significant abnormality. LIVER: Diffuse pulmonary infiltration of the liver GALLBLADDER: No significant abnormality. BILE DUCTS: No significant abnormality. PANCREAS: No significant abnormality. SPLEEN: No significant abnormality. ADRENALS: No significant abnormality. RIGHT KIDNEY and URETER: No significant abnormality. LEFT KIDNEY and URETER: No significant abnormality. STOMACH and SMALL BOWEL: No significant abnormality. COLON: No significant abnormality. APPENDIX: No significant abnormality. PERITONEUM: No free fluid. No free air. No fluid collection. LYMPH NODES: No significant adenopathy. AORTA and ARTERIES: No significant abnormality. IVC and VEINS: No significant abnormality. URINARY BLADDER: No significant abnormality. REPRODUCTIVE ORGANS: No significant abnormality. ADDITIONAL FINDINGS: Small hiatal hernia SKELETAL SYSTEM: Degenerative changes thoracolumbar spine IMPRESSION: 1. No interval changes compared to previous exam 2. Hepatic steatosis Signer Name: Delio Altman MD Signed: 01/17/2021 1:10 PM Workstation Name: [id number]
[2021-01-17 14:47] VITALS: BP 158/83
== END 2021-01-17 14:27 | disposition home or self-care (01) ==
LOC: EDUNIT# → ED 09:07
DX: K29.20 Alcoholic gastritis without bleeding (principal); F10.230 Alcohol dependence with withdrawal, uncomplicated; Z79.899 Other long term (current) drug therapy
CPT/HCPCS: 36415; 74177; 80048; 80076; 82140; 82550; 82553; 83690; 83735; 85025; 85610; 85730; 96365; 96366; 96375; 99284; C9113; J2060; J2270; J2405; J3411; J7030; Q9967